=== PATIENT | female | born 1955 | race Caucasian/White ===

== ENCOUNTER 2021-12-29 12:33 | Emergency (ER) | payer BC, SELFPAY ==
[2021-12-29 13:25] LABS: #Basophils 0.1 thou/uL (0.0-0.2); #Eosinphils 0.3 thou/uL (0.0-0.7); #Monocytes 0.7 thou/uL (0.11-0.59); #Neutrophils 4.3 thou/uL (1.40-6.50); %Basophils 0.9 % (0.0-1.0); %Eosinophils 3.2 % (0.0-10.0); %Lymphocytes 36.2 % (21.0-51.0); %Monocytes 8.3 % (0.0-10.0); %Neutrophils 51.4 % (42.0-75.0); Hemoglobin 15.2 g/dL (12.0-16.0); Mean Corpuscular HGB CONC 32.8 g/dL (32.0-36.0); Mean Corpuscular Volume 97.4 fL (78.0-98.0); Platelet Count 275 thou/uL (130-400); RBC Distribution Width 11.9 % (11.5-14.5); Red Blood Cell (RBC) Count 4.75 mill/uL (4.20-5.40); White Blood Cell (WBC) Count 8.4 thou/uL (4.8-10.8)
[2021-12-29] MEDS ORDERED: Aspirin Chewable 81 MG TAB ONE (13:41)
[2021-12-29 15:05] LABS: Calcium 8.9 mg/dL (7.8-10.44); Chloride 106 mmol/L (98-107); Potassium 4.1 mmol/L (3.5-5.1); Sodium 139 mmol/L (136-145)
[2021-12-29 15:06] LABS: Glucose 105 mg/dL (80-115)
[2021-12-29 15:07] LABS: Anion Gap 15 mmol/L (10-20); Carbon Dioxide 22 mmol/L (23-31)
[2021-12-29 15:08] LABS: Bilirubin, Total 0.4 mg/dL (0.2-1.2)
[2021-12-29 15:09] LABS: Alkaline Phosphatase 88 U/L (40-110); Calc. Creatinine Clearance 0 mL/min (70-130)
[2021-12-29 15:10] LABS: BUN (Urea Nitrogen) 16 mg/dL (9.8-20.1)
[2021-12-29 15:11] LABS: AST (SGOT) 22 U/L (5-34)
[2021-12-29 15:12] LABS: ALT (SGPT) 17 U/L (8-55); Lipase 64 U/L (8-78)
[2021-12-29] MEDS ORDERED: Pantoprazole 40 MG VIAL ONE (16:15)
[2021-12-29] MEDS ORDERED: Mag-Al 1200 mg/1200 mg/30 ML UDCUP ONE (16:15)
[2021-12-29] MEDS ORDERED: Lidocaine Viscous Sol 2% 15 ml UD Cup ONE (16:15)
== END 2021-12-29 18:04 | disposition home or self-care (01) ==
LOC: ERS 12:33
DX: R10.13 Epigastric pain (principal); I11.0 Hypertensive heart disease with heart failure; I50.9 Heart failure, unspecified; F17.210 Nicotine dependence, cigarettes, uncomplicated
CPT/HCPCS: 36415; 71045; 74176; 80053; 83690; 83880; 84484; 85025; 93005; 94760; C9113